=== PATIENT | male | born 1950 | race Caucasian/White ===

== ENCOUNTER 2019-06-28 08:20 | Inpatient (IN) ==
[~2019-06-28 08:20] MED LIST: BUPIVACAINE HCL/EPINEPHRINE 50 ML VIAL ONE; LIDOCAINE HCL 20 ML VIAL ONE; MORPHINE SULFATE 15 MG TABLET.SA PO PRN; NORMAL SALINE 20 ML VIAL ONE; ONDANSETRON HCL/PF 2 MG/ML VIAL ONE; TRANEXAMIC ACID 1,000 MG in NORMAL SALINE 100 ML IV PRN; ceFAZolin SODIUM 1 GM VIAL IV PRN
--- NOTE | 2019-06-28 09:14 | ANES ---
Anesthesia Pre Procedure Eval Vitals/Labs: Last Vital Signs Temp 37.0 C 06/28/19 08:40 Pulse 54 L 06/28/19 08:40 Resp 17 06/28/19 08:40 BP 121/78 06/28/19 08:40 Pulse Ox 96 06/28/19 08:40 HOME MEDICATIONS ezetimibe 10 mg tablet 10 mg PO DAILY tab 06/01/19 [Last Taken Unknown] hydrocodone 7.5 mg-acetaminophen 325 mg tablet 1 tab PO .prn tab 06/01/19 [Last Taken Unknown] ibuprofen 200 mg capsule 200 mg PO Q8H 06/01/19 [Last Taken Unknown] levothyroxine 50 mcg tablet 50 mcg PO DAILY tab 06/01/19 [Last Taken Unknown] nebivolol 2.5 mg tablet 2.5 mg PO DAILY 06/01/19 [Last Taken Unknown] zolpidem 10 mg tablet 10 mg PO HS tab 06/01/19 [Last Taken Unknown] Allergies/Adverse Reactions: Allergies Allergy/AdvReac Type Severity Reaction Status Date / Time Cgohfil-Wtd-Iwx Reductase AdvReac Intermediate severe Verified 06/01/19 10:54 Inhibitor muscle pain/chest pain - Planned Procedure Planned Procedure: Right Reverse Total Shoulder Arthroplasty Medication List Reviewed:: Yes Allergies Verified: Yes Medical History (Last Reviewed 06/28/19 @ 09:12 by Suresh Montemayor CRNA) Rotator cuff arthropathy (Chronic) Hypothyroid Asthma Onset Date: Unknown Hay fever Onset Date: Unknown Sleep apnea Onset Date: Unknown Hypertension Onset Date: Unknown Thyroid disease Onset Date: Unknown Surgical History (Last Reviewed 06/28/19 @ 09:13 by Suresh Montemayor CRNA) H/O hernia repair Onset Date: Unknown x's 2 Recent surgical procedure on lower extremity Onset Date: Unknown left leg surgery wire went thru his leg and needed repaired Family History (Last Reviewed 06/28/19 @ 09:13 by Suresh Montemayor CRNA) Mother , age 72 Ovarian cancer COPD (chronic obstructive pulmonary disease) Father COPD (chronic obstructive pulmonary disease) H/O heart bypass surgery Brother Colitis Sister Alive and well Sister Alive and well Son Alive and well x4 Daughter Alive and well x3 - Family Anesthesia History Family History:: no untoward family reactions to anesthesia - Airway/Neck/Teeth Within Normal Limits:: Yes Teeth Condition: intact Neck Exam: full range of motion Mallampatti Score: 3 Thyromental (T-M) distance: > 6 cm Mandibulo Hyoid distance: > 3 cm - Respiratory Respiratory Physical: lungs clear Smoking Status: Never smoker Sleep Apnea currently treated: No Sleep Apnea by current assessment: No - Cardiovascular Cardiac History: hypertension Tolerate Activity: Good Heart Sounds: S1 & S2, Regular - Gastrointestinal NPO since: MN - Anesthesia Assessment and Plan ASA Class: PS, II Anesthesia Type Plan: General LMA - interscalene nerve block Planned difficult intubation/equipment available: No
[2019-06-28] MEDS: RINGER'S SOLUTION,LACTATED 1,000 ML IV PRN ×2 (09:19→11:14)
[2019-06-28] MEDS ORDERED: ONDANSETRON HCL/PF 2 MG/ML VIAL IV PRN (12:18)
[2019-06-28] MEDS ORDERED: MAG HYDROX/ALUMINUM HYD/SIMETH 30 ML UDC PO PRN (12:18)
[2019-06-28] MEDS ORDERED: DEXTROSE 5%-LACTATED RINGERS 1,000 ML IV PRN (12:18)
[2019-06-28] MEDS ORDERED: ACETAMINOPHEN 500 MG TABLET PO PRN (12:18)
[2019-06-28] MEDS ORDERED: ZOLPIDEM TARTRATE 5 MG TABLET PO PRN (12:18)
[2019-06-28] MEDS ORDERED: MAGNESIUM HYDROXIDE 30 ML UDC PO PRN (12:18)
[2019-06-28] MEDS ORDERED: diphenhydrAMINE HCL 50 MG/ML VIAL IV PRN (12:18)
--- NOTE | 2019-06-28 12:24 | OR ---
Operative Report - Dictated Report Narrative: DATE OF PROCEDURE: 06/28/2019 PHYSICIAN: Sandeep King MD TELEVISION NEWS REPORTER: Bruno Johnston PA-C (provided and essential set of skilled, educated hands that assisted with transfer, positioning, prepping, draping, manipulation, retraction, placement of implants, irrigation, closure wounds, and application of dressings all which cannot be performed by the available surgical crew) PREOPERATIVE DIAGNOSIS: Right rotator cuff deficient shoulder arthrosis. POSTOPERATIVE DIAGNOSIS: Right rotator cuff deficient shoulder arthrosis. OPERATIONS AND PROCEDURES: Right reverse total shoulder arthroplasty. ANESTHESIA: General plus regional. COMPLICATIONS: None. DRAINS: None. SPECIMENS: Bone. ESTIMATED BLOOD LOSS: 75 mL. RETAINED IMPLANTS: 1. DePuy Delta Xtend cementless metaglene. 2. Delta Xtend glenosphere, 38 mm standard. 3. Delta Xtend size 12 modular humeral KING-coated cementless stem. 4. Size 2 right modular eccentric epiphysis KING-coated cementless. 5. Delta Xtend standard polyethylene size 38 plus 3 mm. 6. Metaglene locking screws, 36 mm and 42 mm in length. 7. Nonlocking metaglene screws, 18 mm x 2 . INDICATIONS FOR PROCEDURE: Mr. Foley is a 68-year-old gentleman with significant past history of rotator cuff tears and deficiency. He had treated these conservatively and had an irreparable rotator cuff with some progression of arthrosis of the shoulder and difficulty with activities of daily living in pain. He was seen in clinic and had failed conservative measures. He wished to proceed with surgical treatment. The risks, benefits, and alternatives were discussed in clinic, including the risk of , blood clots, bleeding, infection, nerve/tendon/blood vessel injury, malposition of components, failure of components, wear or limited range of motion, stiffness, and need for additional procedures, and she wished to proceed. Consent was obtained here in the clinic. DESCRIPTION OF PROCEDURE: After marking the correct extremity in the preoperative holding area, the patient was taken to the operating room. A timeout was performed. IV antibiotics consisting of Ancef were administered prior to procedure. The regional followed by general anesthetic was induced by the nurse wetlands technician at my request. He was then transitioned to beach chair position with all bony prominences well padded. The head in neutral, legs with SCDs and supported,and the nonoperative arm supported. The surgical arm was prescrubbed with alcohol then prepped and draped in the standard sterile fashion and the skin was covered with ioban. A deltopectoral incision was made and blunt dissection was carried down through the skin. The cephalic vein was identified, protected, and retracted. We then went through the deltopectoral interval, exposing the proximal humerus. It was noted that there was no rotator cuff, supraspinatus and infraspinatus tendon, or teres minor tendon. The subscapularis was intact as well as the biceps. A tag suture was placed in subscapularis tendon as well as the anterior capsule, and this was elevated off the anterior humerus passing along the bicipital groove and into the rotator cuff interval, exposing the proximal humerus. This was then freed off the proximal humerus. A biceps tenotomy was performed and the shoulder was dislocated. The humeral head was noted to show signs of arthrosis. Next, an entry drill was placed down the humerus centered on the longitudinal axis entering off just onto the articular surface on the humeral head. Next were serial reamers up to the size 12 were utilized, which gave good overall cortical contact. Next, a proximal humeral head cut was performed. We made th e cut at approximately 10 degrees of retroversion. This appeared to resect an appropriate amount of humeral head. This was then pinned into place and an oscillating saw was utilized to cut this humeral head, protecting the surrounding soft tissues. We then placed a cap over the proximal humerus and turned our attention to the glenoid. The soft tissues were then elevated off the humeral neck as well as circumferentially around the glenoid. The glenoid was exposed. The remaining biceps tendon and labrum were resected. Using tractors, the glenoid was exposed and a guidewire was placed just posterior and inferior to the center of the glenoid. This was made so that it directed slightly superiorly but otherwise perpendicular to the glenoid on the axillary plane. Protecting the surrounding soft tissues, a reamer was utilized in order to remove the remaining cartilage. A hand molder was utilized in order to resect the superior cartilage, and this resulted in a good overall appearance of the glenoid. The center drill lug hole was drilled and had good circumferential bone. The metaglene was then impacted into place and oriented for placement of screws along the mid plane in the s uperior and inferior quadrants of the glenoid as well as anterior to posterior screws. These were drilled and had appropriate overall length of screws on the superior and inferior metaglene screws. Good purchase was obtained with a 36 mm screw superiorly and 42 mm screw inferiorly. The anterior and posterior screws were drilled and 18 mm anterior and 18mm posterior nonlocking screws were placed . We then locked the superior and inferior screws into place. This gave good overall compression down to the glenoid with flat overall appearance and an appropriate alignment. We returned our attention to the proximal humerus. The proximal humeral reaming guide was placed for an eccentric reamer. This was utilized in order to prepare the proximal humerus. The trial stem was assembled on the back table and impacted into place. After placing the trial stem, we then returned to the metaglene. The glenosphere was then secured to the metaglene, impacted, and tightened ensuring that this was seated completely. We then returned to the humeral component and placed the trials of polyethylene inserts and found that the 3mm gave good overall longitudinal traction with no gapping. The shoulder was able to reach 140 degrees of forward flexion and 140 degrees of abduction, external rotation was to 90 degrees and with fulcrum and armpit were unable to hinge the joint out of place, and there was no essentially no gapping of the polyethylene off the humeral head nor any signs of impingement on the glenoid neck. We felt that these were the appropriately placed and sized implants. We then dislocated the shoulder, removed the trial implants, thoroughly irrigated the humerus, impacted the final implants into place in the prior determined retroversion. The trial polyethylene was utilized again and was noted that the actual stem and the trial stem were equal in tension, and thus the final polyethylene was impacted into place. The shoulder was reduced, again noted to be stable, was then thoroughly irrigated. The subscapularis was secured to the surrounding soft tissues and through drill holes using a #1 Ethibond suture. The deltopectoral interval was closed with #0 Vicryl. The deep tissues were then closed with #0 Vicryl, subcutaneous with 3-0 Vicryl, and the skin with naeem. Xeroform, 4 x 4, ABD, soft roll, and full arm Ranjit was applied. The patient was placed in a shoulder sling, awoken, and transferred to postanesthesia care in stable condition. All sponge, needle, and instrument counts were correct prior to closing the wounds. We will obtain postoperative films and be admitted to the floor for postoperative pain control, IV antibiotics, and starting of physical therapy. I anticipate a one to two night hospital stay.
--- NOTE | 2019-06-28 13:25 | ANES ---
Post Anesthesia Assessment - Vital Signs Vitals: Last Vital Signs Temp 36.4 C 06/28/19 13:00 Pulse 67 06/28/19 13:00 Resp 16 06/28/19 13:00 BP 120/79 06/28/19 13:00 Pulse Ox 96 06/28/19 13:00 Airway Patency: Normal - Mental Status Level Of Consciousness: Awake - Pain Level Pain Score: 0 - N/V Assessment Nausea/Vomiting Presence: None Dehydration:: No
--- NOTE | 2019-06-28 13:25 | ANES ---
Post Anesthesia Discharge - Transfer of Care Transfer of Care handoff given to nurse: Yes - Discharge from PACU Discharge from PACU when meets criteria: Yes
[2019-06-28] MEDS: KETOROLAC TROMETHAMINE 15 MG/ML VIAL IV SCH ×2 (13:26→18:26)
--- NOTE | 2019-06-28 13:34 | ANES ---
Anesthesia Procedure Note Procedure Note: ANESTHESIA PROCEDURE NOTE Date of procedure: 06/28/19. Time of procedure: 1010. Performed by: Alessandro Montemayor CRNA Extractions Technician: Aury Mendoza RN . Preprocedure diagnosis: Right shoulder DJD. Post procedure diagnosis: Same. Procedure: Ultrasound-guided right interscalene nerve block Indications: Postoperative analgesia for right reverse total shoulder. Findings: Patient brought to operating room #2 and given a general anesthetic induction with LMA insertion. Patient was placed in semi-Fowlers position. The right side of patient's neck was prepped with ChloraPrep. Ultrasound was utilized to identify the brachial plexus in the right interscalene groove. A 22-gauge 2 inch regional block needle was advanced under ultrasound guidance till tip of needle was positioned just distal to brachial plexus. Nerve stimulator was also utilized to confirm needle placement. Muscle twitch was n oted with decreasing intensity from 0.8 mA to 0.45 mA. Muscle twitch disappeared entirely at 0.45 mA. 20 mL of 0.5% Marcaine with epinephrine 1 200,000 was injected without resistance with adequate spread of local anesthesia noted around the nerve roots. Regional block needle was repositioned until placed just proximal to brachial plexus. A second dose of 20 mL of 0.5% Marcaine with epinephrine 1 200,000 was injected without resistance again with adequate local anesthetic spread around the nerve roots. Regional block needle was removed intact. Fluids: N/A. Specimen: N/A. Post procedure condition: The patient tolerated the procedure well. No complications were noted. Thank you for this consultation Alessandro Montemayor CRNA
[2019-06-28] MEDS: ceFAZolin SODIUM 1 GM in DEXTROSE 5 % IN WATER 50 ML IV SCH ×4 (13:42→20:30)
[2019-06-28] MEDS: ASPIRIN 325 MG TABLET.DR PO SCH (20:31)
[2019-06-28] MEDS: oxyCODONE HCL/ACETAMINOPHEN 1 TAB TABLET PO PRN (20:36)
[2019-06-28] MEDS: MORPHINE SULFATE 15 MG TABLET.SA PO SCH (20:36)
[2019-06-28] MEDS ORDERED: SENNOSIDES/DOCUSATE SODIUM 1 TAB TABLET PO SCH (21:00)
[2019-06-29] MEDS: KETOROLAC TROMETHAMINE 15 MG/ML VIAL IV SCH ×3 (00:04→12:10)
[2019-06-29] MEDS: ceFAZolin SODIUM 1 GM in DEXTROSE 5 % IN WATER 50 ML IV SCH ×2 (02:35)
[2019-06-29] MEDS: oxyCODONE HCL/ACETAMINOPHEN 1 TAB TABLET PO PRN ×2 (04:29→09:46)
[2019-06-29] MEDS ORDERED: LEVOTHYROXINE SODIUM 50 MCG TABLET PO SCH (07:00)
[2019-06-29] MEDS: ASPIRIN 325 MG TABLET.DR PO SCH (08:44)
[2019-06-29] MEDS: MORPHINE SULFATE 15 MG TABLET.SA PO SCH (08:45)
[2019-06-29] MEDS ORDERED: EZETIMIBE 10 MG TABLET PO SCH (09:00)
--- NOTE | 2019-06-29 11:55 | DS ---
(1) Status post reverse total arthroplasty of right shoulder Problem: Acute (2) Rotator cuff arthropathy Problem: Chronic Qualifiers: Date of Discharge:: 06/29/19 Hospital Course: Mr. Foley was admitted to the floor after undergoing reverse right total shoulder arthroplasty. Tolerated this well. Was admitted to the floor postoperatively for 24 hours of IV antibiotics, pain control, medical comanagement, and occupational and physical therapy. OT and PT were consulted to assist with activities of daily living and ambulation. Was made weightbearing as tolerated with range of motion as tolerated. Pain was initially controlled with IV regimen. This was transitioned to oral once tolerating a by mouth intake. Was resumed on home diet and medications. Aspirin 325 mg twice daily SCD and KAREN hose were utilized for DVT prophylaxis. Vital signs remained stable to the hospital course. Physical examination throughout the hospital course showed an extremity that had sensation that was intact to light touch, palpable pulses, a benign wound, motor intact to the toes, ankle, and knee. Knee range of motion was approximately [] degrees to [] degrees. Once an oral pain regimen was tolerated and physical therapy goals were met, it was felt that they were stable for discharge to home. Instructions: Activities as tolerated up in immobilizer. Keep wound and dressings clean and dry. If you note any drainage or for comfort you can cover with dry gauze and tape. Change every 2-3 days as needed. Continue with physical therapy. Resume home diet. Report any fever over 101.5 Fahrenheit, uncontrolled pain, increased drainage, foul odor of drainage, new or increased calf pain or shortness of breath, or any other significant complaints. A 325mg twice a day aspirin will be started after finishing anticoagulation if not allergic for 1 month postoperatively. No driving until instructed otherwise. Follow up in approximately 10-14 days. Procedures Performed: see notes below List Procedures: Right reverse total shoulder arthroplasty Discharge Location: Home Disposition: Home self-care Condition: Good Discharge Activity: Activity as tolerated, Other - Up with immobilizer on Discharge Diet: General/regular food Referrals: Philip Nunez DO [Primary Care Provider] - Sandeep King MD [Staff Physician] - 07/13/19 9:00 am Additional Patient Instructions (free text): Physical Therapy at [facility] in on WednesdayJune 30 at 11:00am. Please fax deomgraphic sheet and PT order to [phone]. Follow up with Dr. King in the Orthopedic office on July 13 at 9:00am. Prescriptions (Any new or edited meds): oxyCODONE HCL/ACETAMINOPHEN [Percocet 5 MG/325 MG] 2 tab PO Q4H PRN #60 tab PRN Reason: Moderate Pain (Pain Scale 4-6) Transmission Status: Sent to [facility] Sennosides/Docusate Sodium [Senokot-S] 2 tab PO HS #30 tab Transmission Status: Pending to [facility] Complete Home Medications List: Complete Home Medication List: ezetimibe 10 mg tablet 10 mg PO DAILY tab 06/01/19 ibuprofen 200 mg capsule 200 mg PO Q8H PRN 06/01/19 levothyroxine 50 mcg tablet 50 mcg PO DAILY tab 06/01/19 nebivolol 2.5 mg tablet 2.5 mg PO DAILY 06/01/19 zolpidem 10 mg tablet 10 mg PO HS tab 06/01/19 Aspirin [Aspirin Enteric Coated] 325 mg PO BID tablet. 06/29/19 Sennosides/Docusate Sodium [Senokot-S] 2 tab PO HS #30 tab 06/29/19 oxyCODONE HCL/ACETAMINOPHEN [Percocet 5 MG/325 MG] 2 tab PO Q4H PRN #60 tab 06/29/19 Amb Orders for Discharge: PT Evaluation and Treatment* Facility: [facility], Location: Rehabilitation Services
[2019-06-29 13:45] VITALS: BP 157/72
== END 2019-06-29 13:56 | disposition home or self-care (01) | DRG 483 ==
LOC: MS 08:20
PROVIDERS: ADMIT Orthopaedic Surgery; ATTEND Orthopaedic Surgery
CPT/HCPCS: 73030; 97140; 97165; J2405